=== PATIENT | male | born 1995 | race Hispanic/Latino ===

== ENCOUNTER 2018-08-23 18:43 | Emergency (ER) | payer OTHER ==
[~2018-08-23] VITALS: Ht 170.2 cm; Wt 90.7 kg
== END 2018-08-23 20:03 | disposition home or self-care (01) ==
LOC: FSED 18:43
DX: M25.561 Pain in right knee (principal); S83.521A Sprain of posterior cruciate ligament of right knee, initial encounter; Y93.02 Activity, running
CPT/HCPCS: 99283